=== PATIENT | male | born 1970 | race Caucasian/White ===

== ENCOUNTER 2018-11-12 07:18 | Day surgery (SDC) | payer OTHER ==
[2018-11-08 12:35] VITALS: BMI 29.0
[2018-11-12] MEDS ORDERED: Ketamine 50 MG/ML (10ML VIAL) ONE (08:42)
--- NOTE | 2018-11-12 18:03 | OP ---
DATE OF PROCEDURE: 11/12/2018 PROCEDURES PERFORMED: Esophagogastroduodenoscopy with esophageal dilation over guidewire and colonoscopy with snare polypectomy. PREOPERATIVE DIAGNOSES: Dysphagia and colon cancer screening. DESCRIPTION OF PROCEDURE: Informed consent was obtained from the patient. He was sedated with total intravenous anesthesia. The endoscope was advanced easily to the second portion of the duodenum and retroflexion was performed in the stomach. The patient had a mild stricture in the proximal esophagus. He has had prior radiation to this area. The distal esophagus was normal. The GE junction was normal. The stomach had minimal erythema in the antrum and was normal otherwise including retroflexed views. The pylorus and first and second portions of the duodenum were normal. A guidewire was placed. An 18 mm Savary dilator was placed through the entire esophagus. There was an appropriate tear in the upper esophagus just below the GE junction. Air was suctioned from the stomach. The procedure was completed. The patient was turned around. Rectal exam was performed and was normal. The colonoscope was advanced to the cecum, where the ileocecal valve and appendiceal orifice were clearly identified. I removed 3 polyps measuring 4 mm from the transverse and descending colon. I removed one 12 mm polyp that was semipedunculated from the sigmoid colon by snare cautery polypectomy. The remainder of the colonic mucosa was normal. IMPRESSION: 1. 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 This was dilated to 18 mm with Savary dilator with good effect at the dilation site. 2. Otherwise unremarkable esophagogastroduodenoscopy. 3. Three polyps measuring 4 to 5 mm, removed from the transverse and descending colon. 4. 11 to 12 mm semipedunculated polyp removed from the sigmoid colon by snare cautery polypectomy. RECOMMENDATIONS: 1. Repeat upper endoscopy with esophageal dilation as needed based on symptomatic response. 2. Await histopathology. If the pathology shows the polyps to be adenomatous polyps, repeat colonoscopy in 3 years. Job ID: [id number]
== END 2018-11-12 12:50 | disposition home or self-care (01) ==
LOC: SDC 07:18
PROVIDERS: ATTEND Internal Medicine Gastroenterology
PROC: 0DBM8ZZ Excision of Descending Colon, Via Natural or Artificial Opening Endoscopic (ICD-10-PCS; principal; 2018-11-12)
PROC: 0D758ZZ Dilation of Esophagus, Via Natural or Artificial Opening Endoscopic (ICD-10-PCS; principal; 2018-11-12)
PROC: 0DBL8ZZ Excision of Transverse Colon, Via Natural or Artificial Opening Endoscopic (ICD-10-PCS; principal; 2018-11-12)
PROC: 0DBN8ZZ Excision of Sigmoid Colon, Via Natural or Artificial Opening Endoscopic (ICD-10-PCS; principal; 2018-11-12)
DX: Z12.11 Encounter for screening for malignant neoplasm of colon (principal); D12.3 Benign neoplasm of transverse colon; D12.4 Benign neoplasm of descending colon; D12.5 Benign neoplasm of sigmoid colon; K22.2 Esophageal obstruction; J37.0 Chronic laryngitis; I10 Essential (primary) hypertension; F43.10 Post-traumatic stress disorder, unspecified; K21.9 Gastro-esophageal reflux disease without esophagitis; Z79.899 Other long term (current) drug therapy; Z87.891 Personal history of nicotine dependence
CPT/HCPCS: 88305

== ENCOUNTER 2023-12-27 04:37 | Emergency (ER) | payer OTHER ==
[2023-12-27] MEDS ORDERED: Ketorolac Tromethamine 30 MG (1 mL) VIAL ONE (05:10)
[2023-12-27] MEDS ORDERED: Ondansetron ODT 4 MG TAB ONE (05:10)
== END 2023-12-27 05:34 | disposition home or self-care (01) ==
LOC: ERS 04:37
DX: S46.811A Strain of other muscles, fascia and tendons at shoulder and upper arm level, right arm, initial encounter (principal); M54.2 Cervicalgia; I10 Essential (primary) hypertension; X50.0XXA Overexertion from strenuous movement or load, initial encounter; Z55.6 Problems related to health literacy
CPT/HCPCS: 96372; 99283; J1885; Q0162